=== PATIENT | female | born 1970 ===

== ENCOUNTER → 2020-11-29 12:10 | Outpatient (CLI) | payer OTHER | END | disposition home or self-care (01) | LOC: LAB 12:10 | PROVIDERS: ATTEND Radiology Diagnostic Radiology | DX: C50.911 Malignant neoplasm of unspecified site of right female breast (principal) ==

== ENCOUNTER 2020-11-30 07:39 | Outpatient (CLI) | payer OTHER | END 2020-11-30 07:58 | disposition home or self-care (01) | LOC: TOM 07:39 | PROVIDERS: ATTEND Internal Medicine Hematology & Oncology | DX: I10 Essential (primary) hypertension (principal); D64.89 Other specified anemias; C50.911 Malignant neoplasm of unspecified site of right female breast ==

== ENCOUNTER 2022-06-16 21:02 | Emergency (ER) | payer OTHER ==
[~2022-06-16] VITALS: Ht 160 cm; Wt 81.6 kg
[2022-06-16] MEDS ORDERED: CARDURA1 MG PO (21:14)
[2022-06-16] MEDS ORDERED: BISOPROLOL FUMA10 MG PO (21:14)
[2022-06-16] MEDS ORDERED: GLUMETZA500 MG PO (21:14)
== END 2022-06-17 00:59 | disposition home or self-care (01) ==
LOC: ER 21:02
DX: M62.830 Muscle spasm of back (principal); C79.9 Secondary malignant neoplasm of unspecified site; C79.89 Secondary malignant neoplasm of other specified sites; Z88.6 Allergy status to analgesic agent; E11.9 Type 2 diabetes mellitus without complications; Z79.84 Long term (current) use of oral hypoglycemic drugs; I10 Essential (primary) hypertension